=== PATIENT | female | born 1940 | race Caucasian/White ===

== ENCOUNTER → 2017-06-15 | Outpatient (CLI) | payer MEDICARE, OTHER ==
--- NOTE | 2017-06-15 14:26 | RADRPT ---
PROCEDURE: XR Knee. CLINICAL INDICATION: Right knee pain TECHNIQUE: Three views of the right knee are available for review. COMPARISON: None available FINDINGS: There is moderate medial joint space narrowing. 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 There is moderate patellofemoral arthrosis. There is a moderate mya nt effusion. No acute fractures seen. No radiopaque foreign body identified. IMPRESSION: 1. Moderate medial compartment joint space narrowing. 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 2. Moderate patellofemoral arthrosis. 3. No acute fracture is seen. RPTAT: XX .Omi Sulilvan MD, MD Date Time Electronically viewed and signed by .Omi Sullivan MD, on 06/15/2017 14:25 .T/
--- NOTE | 2017-06-29 04:31 | HKNOTE ---
DATE OF SERVICE: ADDENDUM: IMAGING: Am MRI scan of the right knee obtained on 05/04/2017, is reported as showing tear of the posterior horn of the medial meniscus. Popliteal cyst. Mild to moderate degenerative changes. Dictated By: Babak Rain MD /silvestre/timmy /Document#: [id number]
--- NOTE | 2017-06-29 04:47 | HKNOTE ---
DATE OF SERVICE: 06/15/2017 MAIN COMPLAINT: Pain and instability of the right knee. HISTORY OF MAIN COMPLAINT: The patient is a 76-year-old female, who gradually developed pain in the right knee roughly March 2017. There was no history of injury. She is referred by her , Den Gay, who is a patient of mine. PRESENT COMPLAINTS: Pain in the right knee is mainly over the medial side of the knee. The pain is described as "severe at times," (occasionally, the knee is unstable and that is 1-2 times a day). The knee does not lock. She is not sure if it swells. (Patient is overweight). She uses 1 crutch. She occasionally gets pain in the lower back "because of my arthritis." She has numbness and tingling in her feet "because I have neuropathy). She limps most of the time. She does not have a shoe lift. She can clip her toenails and tie her shoelaces. PAST ORTHOPEDIC HISTORY: Previous orthopedic operations: None. PRIOR CORTISONE INTAKE: Occasional. ALCOHOL INTAKE: None. OTHER JOINT PROBLEMS: "Yes, I have pain in all my joints, especially in my back and my hands. BLOOD TESTS FOR ARTHRITIS: Yes (does not know the result). 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 PAST MEDICAL HISTORY: Hypertension when she was younger, now resolved, gout and hypothyroidism. PAST SURGICAL HISTORY: 1. Tonsillectomy. 2. Appendectomy. 3. Mastectomy. 4. removed. 5. Breast reduction. DRUG ALLERGIES: Iodine, niacin, clindamycin, Lyrica, penicillin and "many others." The patient states she "almost from iodine and had to be resuscitated," all of others on the list have caused "bad reactions." MEDICATIONS: 1. Synthroid. 2. . 3. Rosuvastatin. 4. Zetia. 5. Metoprolol. 6. Loric. 7. Calcium. 8. Vitamin D. 9. Vitamin B. FAMILY HISTORY: Father at 76. He had gout and of a stroke. Mother at 76 and had breast cancer. She of heart problems. SYSTEMS REVIEW: Prone to dizzy spells. Tingling sensations in his feet and legs. Numbness, feet and legs. Gait disturbance from the pain in her knee and feet. Hypertension. Shortness of breath. Chronic diarrhea. Occasional swelling of the ankles. Has hemorrhoids. Systems review otherwise negative. HABITS: Patient does not smoke or drink alcoholic beverages. DIALYSIS CHIEF EQUIPMENT TECHNICIAN: Maribell Ramirez. PHYSICAL EXAMINATION: GENERAL: The patient is a fit-looking, but overweight, 76-year- old female. VITAL SIGNS: Height 5 feet. Weight patient refused. Blood pressure 130/60, temperature 98.3. GAIT: She walks without a walking aid. HIPS: Both hips have full range of motion without pain. KNEES: Examination of the right knee: Extension lacks 5 degrees (painful on attempting further extension). Flexion lacks 20 degrees (painful on attempting further flexion). Tender over the medial joint line. 1+ effusion. 3+ crepitus in the knee and patella. IMAGING: Plain x-rays of the left knee obtained today at the [facility] were reviewed. These showed moderate narrowing of the medial joint space. Some mild subchondral sclerosis. None of the other secondary signs of osteoarthritis. DISCUSSION: A 76-year-old female, who developed pain, swelling and instability of her right knee without history of injury. She now has the classic symptoms of a torn meniscus, also the clinical signs. X-rays show [id number] degenerative changes superimposed. DIAGNOSES: 1. Hypertension. 2. Obesity. 3. Gout. 4. Hypothyroidism. 5. Hypercholesterolemia. 6. SEVERE REACTIONS TO MULTIPLE MEDICATIONS. MANAGEMENT: Under sterile conditions, the patient was given an injection of 2 cc of Kenalog and 6 cc of 2 percent lidocaine into her right knee. If her knee does not settle down adequately so that it does not impact on her daily life, I recommend that she call us to order an MRI scan of the right knee. Dictated By: Babak Rain MD /silvestre/marbin /Document#: [id number]
== END | disposition home or self-care (01) ==
LOC: HKI 14:27
DX: M25.561 Pain in right knee (principal); M25.361 Other instability, right knee; I10 Essential (primary) hypertension; E66.9 Obesity, unspecified; M10.9 Gout, unspecified; E03.9 Hypothyroidism, unspecified; E78.00 Pure hypercholesterolemia, unspecified
CPT/HCPCS: 20610; 73562; G0463

== ENCOUNTER → 2017-07-21 | Outpatient (CLI) | payer MEDICARE, OTHER | END | disposition home or self-care (01) | LOC: HKI 14:03 | DX: Z01.818 Encounter for other preprocedural examination (principal) | CPT/HCPCS: G0463 ==

== ENCOUNTER → 2018-05-09 | Outpatient (CLI) | END | disposition home or self-care (01) ==

== ENCOUNTER → 2018-05-31 | Outpatient (CLI) | END | disposition home or self-care (01) ==

== ENCOUNTER 2018-06-09 05:28 | Day surgery (SDC) | END 2018-06-09 10:32 | disposition home or self-care (01) ==

== ENCOUNTER → 2018-06-20 | Outpatient (CLI) | END | disposition home or self-care (01) ==

== ENCOUNTER → 2018-07-11 | Outpatient (CLI) | END | disposition home or self-care (01) ==